=== PATIENT | female | born 1980 | race Caucasian/White ===

== ENCOUNTER 2021-01-02 11:12 | Emergency (ER) | payer MEDICARE, MEDICAID, SELFPAY ==
--- NOTE | 2021-01-02 11:17 | ED.FEMALEGU ---
HPI - Female Genitourinary General Chief complaint: Urogenital-Female Stated complaint: POS UTI Time Seen by Provider: 01/02/21 11:17 Source: patient, RN notes reviewed and other History of Present Illness HPI Narrative: Patient is a 40-year-old female who presents the urgent care with a caregiver with complaints of a possible UTI. Patient states that she has been having pain for the last couple days and caregiver states that it is gotten worse just in the last 24 hours. Denies of any use of [id number] medication for symptoms. Denies of any fever, nausea, vomiting. Denies of any known blood in the urine. Patient was seen on December 21 for the same complaints. Patient has an ultrasound of the kidneys scheduled for January 13 and she has a telemedicine visit scheduled on January 11. It does not appear that patient has seen a neurologist in the past. No other acute complaints. No acute distress noted. Patient and caregiver aware of the plan of care. Some parts of this dictation were generated by voice recognition software and may contain typographical and/or grammatical inaccuracies. Related Data Home Medications Medication Instructions Recorded Confirmed calcium carbonate-vit D3-min 1 tablet PO DAILY 01/02/21 01/02/21 [Calcium-Vitamin D] clonazepam 01/02/21 escitalopram oxalate mg 01/02/21 gabapentin 01/02/21 levonorgestrel-ethinyl estrad 01/02/21 Allergies Allergy/AdvReac Type Severity Reaction Status Date / Time No Known Allergies Allergy Unknown Unverified 08/07/17 08:14 Review of Systems Review of Systems: CONSTITUTIONAL: Denies fever, chills, or sweats. EYES: Denies visual changes, redness, or discharge. ENT: Denies rhinorrhea, congestion, sore throat, or otalgia. CARDIOVASCULAR: Denies chest pain, palpitations, or edema. RESPIRATORY: Denies cough or dyspnea. GASTROINTESTINAL: Denies abdominal pain, nausea, vomiting, or diarrhea. GENITOURINARY: reports of dysuria and urinary frequency SKIN: Denies rash or itching. MUSCULOSKELETAL: Denies back pain, joint pain, or myalgia. NEUROLOGIC: Denies headache, numbness, or weakness. All other systems reviewed are negative, except as documented in HPI. PMFSH Comments At the time of my signature, I reviewed and agree with the nursing past medical, surgical, social, and family history. There is no relevant family history pertinent to the patient complaint. Exam Narrative: GENERAL: This is a well-nourished, well-developed patient, in no apparent distress. HEAD: normocephalic, atraumatic. EYES: PERRL. Sclera clear/white. Vision is grossly intact. EARS: External ears normal NOSE: External nose normal with no obvious nasal discharge, nares without redness, no rhinorrhea. THROAT: Mucous membranes moist NECK: Neck supple CARDIOVASCULAR: Regular rate and rhythm RESPIRATORY: Clear to auscultation. Breath sounds equal bilaterally. No wheezes, rales, or rhonchi. GASTROINTESTINAL: Abdomen soft, mild suprapubic tenderness, nondistended. Bowel sounds are active. No guarding. SKIN: warm, intact with no suspicious lesions or rash, good texture and turgor. NEURO: awake, alert, and oriented to person, place and time. There were no obvious focal neurologic abnormalities. EXTREMITIES: No clubbing, cyanosis, or edema. BACK: No flank tenderness. Course Vital Signs Vital signs: Vital Signs Temperature 98 F 01/02/21 11:38 Pulse Rate 65 01/02/21 11:38 Respiratory Rate 18 01/02/21 11:38 Blood Pressure 138/100 H 01/02/21 11:38 Pulse Oximetry 100 01/02/21 11:38 Temperature 98 F 01/02/21 11:38 Pulse Rate 65 01/02/21 11:38 Respiratory Rate 18 01/02/21 11:38 Blood Pressure 138/100 H 01/02/21 11:38 Pulse Oximetry 100 01/02/21 11:38 Reviewed-patient is informed that they may have pre-hypertension or hypertension based on a blood pressure reading in the department. I recommend the patient call the primary care provider listed on their dischar
[2021-01-02 11:38] VITALS: BP 138/100; PULSE 65; RESP 18; TEMP 36.6; O2SAT 100
== END 2021-01-02 12:02 | disposition home or self-care (01) ==
PROVIDERS: Emergency Provider Nurse Practitioner Family
DX: R30.0 Dysuria (principal)
CPT/HCPCS: 81003; 99202; G0463

== ENCOUNTER 2021-10-13 13:57 | Outpatient (RCR) | payer MEDICARE, MEDICAID, SELFPAY ==
--- NOTE | 2021-10-13 15:20 | PTOPEVAL ---
PHYSICAL THERAPY INITIAL EVALUATION. Thank you for referring Arcelia Silveira to [facility].? The patient is scheduled to be seen for therapy? 1x/week for 4 weeks. Please review, sign, date and return this plan of care FAREED. I agree with and certify that the following plan of care is medically necessary. Referring Physician Date Attending Provider: MD Isis Fischer *PT Outpatient Evaluation Start: 10/13/21 Evaluation Information Diagnosis Cerebral Palsy Additional Evaluation Detail Pt arrives today with her caregiver, Carlee. Carlee states Arcelia lives at a assisted living facility and lift modified ind in an apartment. Subjective Information Per caregiver, patient has Query Text:As Reported By Patient/ been using for 1-2 years. She Family does not use a walker when walking around her apartment but has a fear of falling. When pt gets nervous or feels she is going to fall she begins to shake, her caregiver states this almost looks like a panic attack. Pt and caregiver decline any recent falls, Carlee states she tries to be very IND and to do things on her own. Per Carlee, their goals for therapy are to address Arcelia's difficultly with feeding, brushing her teeth, and other self care ADLs. Prior Level of Function Activity of Daily Living Ability Needs Some Help Indoor/Home Mobility Independent Community Mobility Independent Functional Cognition (Planning, Shopping Needs Some Help , Taking Medications) Cooking No Cleaning No Laundry No Shopping No Driving No Pain Assessment Pain Score 0: Self Report Upper Extremity Range of Motion General Upper Extremity Range of Motion WFL/Left,WFL/Right Lower Extremity Range of Motion General Lower Extremity Range of Motion WFL/Left,WFL/Right Lower Extremity Muscle Strength Testing General Lower Extremity Strength WFL/Left,WFL/Right Gross Lower Extremity Strength BUE strength grossly 3+/5 Upper Extremity Muscle Strength Testing General Upper Extremity Strength WFL/Left,WFL/Right Gross Upper Extremity Strength Comments BUE grossly 3+/5 Balance Assessment Toth Balance Assessment TOTH Balance Evaluation Total Score
--- NOTE | 2021-10-29 14:27 | PCPTNOTE ---
Attending Provider: MD Aaliyah Ushe Patient:Arcelia Silveira Date of :1980 PHYSICAL THERAPY DISCHARGE SUMMARY Clerical staff has called patients custodial on 3 occasions to schedule appointments for therapy. They do not have a voicemail set up. Since we are unable to schedule patient for treatments she will be discharged at this time. Thank you for referring this patient to [facility]. Please review, sign, date and return this discharge summary FAREED. I have been updated about the patient's current status and I agree with discharge from the above service at this time. Referring Physician Date
== END 2021-10-29 14:38 | disposition home or self-care (01) ==
LOC: ANHGOSHPT 13:57
DX: R25.1 Tremor, unspecified (principal); G80.9 Cerebral palsy, unspecified; F40.298 Other specified phobia
CPT/HCPCS: 97110; 97162

== ENCOUNTER 2021-12-02 15:15 | Outpatient (RCR) | payer MEDICARE, MEDICAID, SELFPAY ==
--- NOTE | 2021-11-03 14:56 | OTOPEVAL ---
OCCUPATIONAL THERAPY INITIAL EVALUATION REPORT 11/03/21 Thank you for referring Arcelia Silveira to [facility].? The patient is scheduled to be seen for therapy? 1x/week for 4 weeks. Please review, sign, date and return this plan of care FAREED. I agree with and certify that the following plan of care is medically necessary. Referring Physician Date Referring Provider: Kami Johnson NP *OT Outpatient Evaluation Start: 11/03/21 13:45 Outpatient Past Medical History Neurological History Hx Other Neurological Disorders Yes: Cerebral palsy, tremors, mild ID Psychosocial History Hx Anxiety Yes Evaluation Information Problem Diagnosis Cerebral palsy Subjective Information Patient presents today with Query Text:As Reported By Patient/ her caregiver. She lives in a Family snf in her own apartment. Her caregiver states someone is with her for roughly 12 hrs/day and they are maybe talking about 24 hrs /day - wanting to try to prevent that. Caregiver states that the patient dresses herself and needs assistance with bathing and sometimes toileting. They report that the UE tremors limit her ability to coordinate brushing teeth effectively, feeding herself, and completing fine motor tasks such as donning ear rings. Prior Level of Function Activity Level (Last 3 Months) Hand Dominance Left Activity of Daily Living Ability Needs Some Help Indoor/Home Mobility Independent Functional Cognition (Planning, Shopping Needs Some Help , Taking Medications) Cooking No Cleaning No Laundry No Shopping No Driving No Home Setting Home Type Apartment Living Situation Alone Support Available Hired Assistance Mobility Assistive Devices (Used Last 3 Walker, Wheeled Months) Bathroom Environment Shower, Curtain Bathing Equipment Fold Down Shower Seat,Grab Bars,Hand Held Shower Prior Cognition/Communication Prior Cognitive Function Learning Disabled,Memory Impaired Pain Assessment Timing of Pain Assessment Timing of Pain Assessment Assessment Pain Scale Pain Scale Used
--- NOTE | 2021-12-02 15:54 | OTOPDC ---
Assessment and note entered by GOSIA Bruce/Dillan, CHT Evaluation Information Assessment Status Discharge Diagnosis Cerebral Palsy Subjective Information Patient and caregiver report no functional changes at this time. They state that they have been using weighted utensils for feeding, but she continues to have difficulties with self feeding. They have not obtained any other adaptive equipment at this time. Reported Pain Level Pain Score 0: Self Report Assessment OT Clinical Summary Arcelia is a 41 year-old, left handed female who is referred to outpatient OT with ADL difficulties secondary to bilateral UE tremors that inhibit her ability to complete self feeding, grooming, and oral care tasks without assistance. OT has focused on adaptive ADL techniques and adaptive equipment to help facilitate increased independence with ADLs. At this time she and her caregivers have been educated on all of the recommended equipment and techniques to continue to practice. No further skilled OT indicated at this time. Plan of Care OT Services Indicated No
== END 2021-12-06 10:36 | disposition home or self-care (01) ==
LOC: ANHOT 15:15
PROVIDERS: PCP Family Medicine
DX: G80.9 Cerebral palsy, unspecified (principal)
CPT/HCPCS: 97110; 97165; 97530; 97535

== ENCOUNTER 2022-08-29 10:43 | Outpatient (CLI) | payer MEDICARE, MEDICAID, SELFPAY | END 2022-08-29 10:44 | disposition home or self-care (01) | LOC: ANHAUDIO 10:47 | PROVIDERS: PCP Family Medicine; Visit Provider Family Medicine | DX: H91.93 Unspecified hearing loss, bilateral (principal) | CPT/HCPCS: 99199 ==

== ENCOUNTER 2022-11-01 11:01 | Outpatient (CLI) | payer MEDICARE, MEDICAID, SELFPAY | END 2022-11-01 11:02 | disposition home or self-care (01) | LOC: ANHAUDIO 11:03 | PROVIDERS: PCP Family Medicine; Visit Provider Physician Assistant | DX: H91.93 Unspecified hearing loss, bilateral (principal) | CPT/HCPCS: 99199 ==

== ENCOUNTER 2023-01-18 13:50 | Outpatient (CLI) | payer MEDICARE, SELFPAY | END 2023-01-18 13:51 | disposition home or self-care (01) | LOC: ANHAUDIO 13:51 | PROVIDERS: PCP Family Medicine; Visit Provider Physician Assistant | DX: H90.42 Sensorineural hearing loss, unilateral, left ear, with unrestricted hearing on the contralateral side (principal) | CPT/HCPCS: 92552; 92556; 92567 ==

== ENCOUNTER 2024-01-10 10:06 | Outpatient (CLI) | payer MEDICARE, MEDICAID, SELFPAY | END 2024-01-10 10:07 | disposition home or self-care (01) | LOC: ANHAUDIO 10:07 | PROVIDERS: PCP Nurse Practitioner Family; Visit Provider Nurse Practitioner Family | DX: Z76.89 Persons encountering health services in other specified circumstances (principal) | CPT/HCPCS: 92555; 92567 ==